=== PATIENT | female | born 1970 | race Caucasian/White ===

== ENCOUNTER → 2018-01-11 | Outpatient (CLI) | payer OTHER ==
[~2018-01-11] MED LIST: COPAXONE20 M1 SQ; DIABETA 5MG TABL5 MG PO; GLUCOPHAGE500 MG PO; HYDROCODON-ACE1 EAC7 PO; NORCO 5-325 TA1 EACH PO
[2018-01-11 16:35] LABS: CREATININE 0.7 mg/dL (0.6-1.3)
== END ==
LOC: M.CT 15:00
PROVIDERS: Nurse Practitioner Family
DX: K80.20 Calculus of gallbladder without cholecystitis without obstruction (principal); D73.89 Other diseases of spleen; E11.9 Type 2 diabetes mellitus without complications